=== PATIENT | male | born 1970 | race Caucasian/White ===

== ENCOUNTER 2016-04-09 09:29 | Emergency (ER) | payer OTHER ==
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
[2016-04-09 11:45] VITALS: BP 158/92
== END 2016-04-09 11:43 | disposition home or self-care (01) ==
LOC: ER 09:29
DX: S29.012A Strain of muscle and tendon of back wall of thorax, initial encounter (principal); V09.09XA Pedestrian injured in nontraffic accident involving other motor vehicles, initial encounter; Y93.89 Activity, other specified; Y92.481 Parking lot as the place of occurrence of the external cause; M54.89 Other dorsalgia; Z88.0 Allergy status to penicillin
CPT/HCPCS: 72070; 99283